=== PATIENT | female | born 1995 | race Caucasian/White ===

== ENCOUNTER 2017-10-26 09:38 | Emergency (ER) | payer MEDICAID, MEDICARE ==
[~2017-10-26] VITALS: Ht 154.9 cm; Wt 72.6 kg
[~2017-10-26 09:38] MED LIST: IRON PILLS PO
[2017-10-26 09:47] VITALS: BP_SYST 139
--- NOTE | 2017-10-26 09:51 | NUR ---
Ambultory to bed 7
--- NOTE | 2017-10-26 09:52 | NUR ---
Pt complains of pain to the right side of the neck. Pt states she noticed the right side of her neck was swollen. Pt states it hurts when she swallows, pt denies trauma. Per patient, she went to [facility] last night and had gotten her labs drawn. Pt states she ended up leaving after 5 hours because it took too long. Pt denies fever, N/V or diarrhea. Pt is AAO x 4 and ambulatory. Family in waiting room. No other injuries/complaints per patient or noted
--- NOTE | 2017-10-26 09:53 | NUR ---
Dr. Ruiz at bedside for evaluation
[2017-10-26] MEDS ORDERED: NACL 0.9% 1,000 ML IV ONE (10:00)
[2017-10-26] MEDS ORDERED: KETOROLAC TROMETHAMINE 30 MG VIAL IVP ONE (10:00)
--- NOTE | 2017-10-26 10:20 | NUR ---
# 20 gauge angiocath placed to LAC. Use of asceptic technique. Opsite placed over site. Blood return noted. Blood for lab drawn from site. Flushed with 10 cc of normal saline. No evidence of infiltration noted. Patient tolerated well.
--- NOTE | 2017-10-26 10:32 | NUR ---
Medications were given, pt tolerated well. No adverse reaction, will continue to monitor.
[2017-10-26 10:42] LABS: CALCIUM 9.3 mg/dL (8.4-11.0); CREATININE 0.7 mg/dL (0.55-1.30); POTASSIUM 3.9 mmol/L (3.5-5.1); PROTHROMBIN TIME 10.4 SECS (9.5-12.5)
--- NOTE | 2017-10-26 10:49 | NUR ---
Ultrasound at patient bedside.
[2017-10-26 10:54] LABS: BASOPHILS # (AUTO) 0.1 K/uL (0.0-0.2); EOSINOPHILS # (AUTO) 0.2 K/uL (0.0-0.4); EOSINOPHILS % (AUTO) 2.6 % (0.0-4.0); HEMATOCRIT 41.8 % (36-48); HEMOGLOBIN 13.9 g/dL (12.0-16.0); LYMPHOCYTES % (AUTO) 12.7 % (20.5-51.5); MEAN CORPUSCULAR HEMOGLOBIN 27 pg (27-31); MEAN CORPUSCULAR HGB CONC 33 % (32-36); MEAN CORPUSCULAR VOLUME 82 fL (79.0-98.0); MONOCYTES # (AUTO) 0.5 K/uL (0.0-1.0); MONOCYTES % (AUTO) 6.2 % (1.7-9.3); NEUTROPHILS # (AUTO) 6.3 K/uL (1.8-7.7); NEUTROPHILS % (AUTO) 77.5 % (40.0-70.0); PLATELET COUNT (AUTO) 308 K/uL (130-430); RED BLOOD CELL COUNT(AUTO) 5.08 MIL/uL (4.2-6.2); RED CELL DISTRIBUTION WIDTH 11.9 % (9.0-15.0); WHITE BLOOD COUNT (AUTO) 8.1 K/uL (4.8-10.8)
[2017-10-26 10:56] LABS: ALBUMIN 4.4 g/dL (3.4-4.8); THYROID STIMULATING HORMONE 2.82 uIu/mL (0.34-4.82); TOTAL BILIRUBIN 0.5 mg/dL (0.0-1.0)
[2017-10-26 11:54] LABS: BILIRUBIN,URINE NEGATIVE (NEGATIVE); BLOOD, URINE NEGATIVE (NEGATIVE); CLARITY/URINE CLEAR (CLEAR); COLOR,URINE YELLOW (YELLOW); GLUCOSE,URINE NEGATIVE (NEGATIVE); KETONES,URINE NEGATIVE (NEGATIVE); LEUKOCYTE ESTERASE ,URINE NEGATIVE (NEGATIVE); NITRITE, URINE NEGATIVE (NEGATIVE); PH,URINE 6.5 (5.0-8.0); PROTEIN URINE NEGATIVE (NEGATIVE); UROBILINOGEN,URINE 0.2 (0.2-1.0)
[2017-10-26] MEDS ORDERED: ONDANSETRON HCL 4 MG/2 ML VIAL IVP ONE (12:00)
[2017-10-26] MEDS ORDERED: MORPHINE 4 MG/ML INJ. SYRINGE IVP ONE (12:00)
[2017-10-26] MEDS ORDERED: MORPHINE SULFATE 10 MG/ML VIAL ONE (12:05)
--- NOTE | 2017-10-26 12:50 | NUR ---
Patient given written and verbal discharge instructions and verbalizes understanding. ER MD discussed with patient the results and treatment provided. Patient in stable condition. ID arm band removed. IV catheter removed intact and dressing applied, no active bleeding. Rx of Tylenol with codeine given. Patient educated on pain management and to follow up with PMD. Pain Scale 3/10 tolerable for pt Opportunity for questions provided and answered.
[2017-10-26 12:51] VITALS: BP_SYST 139
== END 2017-10-26 12:51 | disposition home or self-care (01) ==
LOC: SED 09:38
DX: I88.9 Nonspecific lymphadenitis, unspecified (principal); R22.1 Localized swelling, mass and lump, neck
CPT/HCPCS: 36415; 76536; 80053; 81003; 81025; 82150; 83690; 84443; 85025; 85610; 85730; 96361; 96374; 96375; 99285; J1885; J2270; J2405; J7030

== ENCOUNTER 2018-04-12 20:28 | Emergency (ER) | payer MEDICARE ==
[~2018-04-12] VITALS: Ht 162.6 cm; Wt 59.0 kg
[2018-04-12 20:35] VITALS: BP_SYST 137
--- NOTE | 2018-04-12 20:35 | NUR ---
Patient to ER bed 4 to gown for evaluation. Side rails up. Report given to Zhanna ROMERO.
--- NOTE | 2018-04-12 20:55 | NUR ---
Pt brought by family ,A&Ox4 pt presents to ER with L ankle pain and swelling after she twist walking on pothole, VS WNL, pedal pulses equal and strong.
--- NOTE | 2018-04-12 21:00 | NUR ---
Dr Wallace at bedside examining patient
--- NOTE | 2018-04-12 21:30 | NUR ---
Pt on stable condition, VS WNL.
[2018-04-12] MEDS ORDERED: IBUPROFEN 800 MG TABLET PO ONE (21:45)
[2018-04-12] MEDS ORDERED: IBUPROFEN 800 MG TABLET ONE (22:07)
[2018-04-12 22:41] VITALS: BP_SYST 132
--- NOTE | 2018-04-12 22:41 | NUR ---
Patient given written and verbal discharge instructions and verbalizes understanding. ER MD discussed with patient the results and treatment provided. Patient in stable condition. ID arm band removed. Rx of Motrin 800 mg given. Patient educated on pain management and to follow up with PMD. Pain Scale 3/10 tolerable for patient . Opportunity for questions provided and answered. Medication side effect fact sheet provided.
== END 2018-04-12 22:41 | disposition home or self-care (01) ==
LOC: SED 20:28
DX: S92.352A Displaced fracture of fifth metatarsal bone, left foot, initial encounter for closed fracture (principal); R03.0 Elevated blood-pressure reading, without diagnosis of hypertension; Z86.79 Personal history of other diseases of the circulatory system; W01.0XXA Fall on same level from slipping, tripping and stumbling without subsequent striking against object, initial encounter; Y93.01 Activity, walking, marching and hiking; Y92.89 Other specified places as the place of occurrence of the external cause; Y99.8 Other external cause status
CPT/HCPCS: 81025; 99284

== ENCOUNTER → 2022-05-19 | Emergency (ER) | payer BC, MEDICARE ==
[~2022-05-19] VITALS: Ht 160 cm; Wt 86.2 kg
[~2022-05-19] MED LIST changes: +HYDR-3917 PO; +IBUP-1969 PO
--- NOTE | 2022-05-19 17:00 | NUR ---
Pt brought by partner, A&Ox4, pt presents to ER with R lower abdominal pain and nausea since today, skin pink and warm, cap refill <3, VSS, respirations even and unlabored.
[2022-05-19 17:08] VITALS: BP_SYST 144
--- NOTE | 2022-05-19 17:40 | NUR ---
Dr Daniel evaluating patient in the triage room
[2022-05-19 18:22] LABS: BILIRUBIN,URINE NEGATIVE (NEGATIVE); BLOOD, URINE 3+ (NEGATIVE); CLARITY/URINE CLEAR (CLEAR); COLOR,URINE YELLOW (YELLOW); GLUCOSE,URINE NEGATIVE (NEGATIVE); KETONES,URINE 1+ (NEGATIVE); LEUKOCYTE ESTERASE ,URINE NEGATIVE (NEGATIVE); NITRITE, URINE NEGATIVE (NEGATIVE); PROTEIN URINE NEGATIVE (NEGATIVE); UROBILINOGEN,URINE 0.2 (0.2-1.0)
[2022-05-19 18:39] LABS: BASOPHILS # (AUTO) 0.3 K/uL (0.0-0.2); BASOPHILS % (AUTO) 3.6 % (0.0-2.0); EOSINOPHILS # (AUTO) 0.1 K/uL (0.0-0.4); EOSINOPHILS % (AUTO) 1.6 % (0.0-4.0); HEMATOCRIT 36.8 % (36-48); HEMOGLOBIN 12.7 g/dL (12.0-16.0); LYMPHOCYTES # (AUTO) 1.3 K/uL (1.0-5.5); MEAN CORPUSCULAR HEMOGLOBIN 29 pg (27-31); MEAN CORPUSCULAR HGB CONC 34 % (32-36); MEAN CORPUSCULAR VOLUME 83 fL (79.0-98.0); MONOCYTES # (AUTO) 0.5 K/uL (0.0-1.0); MONOCYTES % (AUTO) 5.1 % (1.7-9.3); NEUTROPHILS # (AUTO) 6.6 K/uL (1.8-7.7); NEUTROPHILS % (AUTO) 74.7 % (40.0-70.0); PLATELET COUNT (AUTO) 293 K/uL (130-430); RED BLOOD CELL COUNT(AUTO) 4.42 MIL/uL (4.2-6.2); RED CELL DISTRIBUTION WIDTH 12.9 % (9.0-15.0); WHITE BLOOD COUNT (AUTO) 8.9 K/uL (4.8-10.8)
[2022-05-19 18:40] LABS: CREATININE 0.73 mg/dL (0.55-1.30); POTASSIUM 3.8 mmol/L (3.5-5.1)
--- NOTE | 2022-05-19 18:42 | NUR ---
Pt A&Ox4, VSS, respirations even and unlabored
[2022-05-19 18:44] LABS: BACTERIA,URINE FEW /HPF (None Seen); WBC,URINE 0-3 /HPF (0-3)
[2022-05-19 18:46] LABS: ALBUMIN 3.6 g/dL (3.4-4.8); TOTAL BILIRUBIN 0.4 mg/dL (0.0-1.0)
[2022-05-19 20:06] VITALS: BP_SYST 144
--- NOTE | 2022-05-19 20:07 | NUR ---
Patient given written and verbal discharge instructions and verbalizes understanding. ER MD discussed with patient the results and treatment provided. Patient in stable condition. ID arm band removed. Rx of [place] and Ibuprofen given. Patient educated on pain management and to follow up with PMD. Pain Scale 4/10. Opportunity for questions provided and answered. Medication side effect fact sheet provided.
== END | disposition home or self-care (01) ==
LOC: SED 16:59
DX: R10.31 Right lower quadrant pain (principal); R11.0 Nausea; Z79.899 Other long term (current) drug therapy
CPT/HCPCS: 36415; 76376; 80053; 81000; 81025; 82150; 83690; 84703; 85025; 99284

== ENCOUNTER 2023-05-16 00:40 | Emergency (ER) | payer BC ==
[~2023-05-16] VITALS: Ht 157.5 cm; Wt 86.2 kg
[2023-05-16 00:50] VITALS: BP_SYST 136; PULSE 104; RESP 20; TEMP 99.7; O2SAT 97
--- NOTE | 2023-05-16 00:55 | NUR ---
Patient triaged and placed in waiting room. VSS and patient appears in no acute distress at this time. Accompanied by , awaiting available bed, and MD notified of need for MSE.
--- NOTE | 2023-05-16 03:03 | NUR ---
DR. HIDALGO WITH PATIENT IN TRIAGE FOR MSE.
[2023-05-16] MEDS ORDERED: KETOROLAC TROMETHAMINE 30 MG VIAL IM ONE (03:15)
[2023-05-16 05:25] LABS: STREPTOCOCCUS A SCREEN (RAPID) NEGATIVE (NEGATIVE)
[2023-05-16] MEDS ORDERED: ACET-2634 PO (05:39)
[2023-05-16] MEDS ORDERED: OSEL75CA PO (05:39)
[2023-05-16] MEDS ORDERED: IBUP-1969 PO (05:39)
[2023-05-16 05:45] VITALS: BP_SYST 133; PULSE 96; RESP 20; TEMP 98.9; O2SAT 97
--- NOTE | 2023-05-16 05:49 | NUR ---
Patient given written and verbal discharge instructions and verbalizes understanding. ER DR HIDALGO discussed with patient the results and treatment provided. Patient in stable condition. ID arm band removed. Rx of TYLENOL, TAMIFLU, AND MOTRIN given. Patient educated on pain management and to follow up with PMD. Pain Scale 0/10. Opportunity for questions provided and answered. Medication side effect fact sheet provided.
== END 2023-05-16 05:45 | disposition home or self-care (01) ==
LOC: SED 00:40
DX: J10.1 Influenza due to other identified influenza virus with other respiratory manifestations (principal); R50.9 Fever, unspecified; R05.9 Cough, unspecified; Z91.013 Allergy to seafood; Z79.899 Other long term (current) drug therapy; Z20.822 Contact with and (suspected) exposure to COVID-19
CPT/HCPCS: 99283; 87426; 86403; 36415; 96372; 87081; 87804 ×2; J1885